=== PATIENT | male | born 1950 | race Caucasian/White ===

== ENCOUNTER 2017-10-23 23:07 | Inpatient (IN) | payer MEDICARE, OTHER ==
[~2017-10-23] VITALS: Ht 172.7 cm; Wt 66.9 kg
[2017-10-23 23:12] VITALS: BP 150/83; PULSE 102; RESP 15; TEMP 98.1; O2SAT 97
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
[2017-10-24 00:44] LABS: AST (GOT) 15 U/L (15-37); AUTOMATED NEUTROPHIL # 8.6 TH/MM3 (1.8-7.7); BASOPHIL # 0.1 TH/MM3 (0-0.2); BASOPHIL % 0.6 % (0.0-2.0); BLOOD UREA NITROGEN 20 MG/DL (7-18); CALCIUM 9.9 MG/DL (8.5-10.1); CHLORIDE 101 MEQ/L (98-107); CREATININE 0.82 MG/DL (0.60-1.30); EOSINOPHIL % 0.1 % (0.0-4.0); GLOMERULAR FILTRATION RATE 94 ML/MIN (>89); GLUCOSE,RANDOM 120 MG/DL (74-106); HEMATOCRIT 40.1 % (39.0-51.0); LYMPH % 11.9 % (9.0-44.0); LYMPHOCYTE # 1.3 TH/MM3 (1.0-4.8); MEAN CELL VOLUME 77.5 FL (80.0-100.0); MEAN CORPUSCULAR HEMOGLOBIN 25.1 PG (27.0-34.0); MEAN CORPUSCULAR HGB CONC 32.4 % (32.0-36.0); MEAN PLATELET VOLUME 7.4 FL (7.0-11.0); MONO % 7.1 % (0.0-8.0); MONOCYTE # 0.8 TH/MM3 (0-0.9); NEUT % 80.3 % (16.0-70.0); PLATELET COUNT 494 TH/MM3 (150-450); RED BLOOD COUNT 5.17 MIL/MM3 (4.50-5.90); RED CELL DISTRIBUTION WIDTH 22.4 % (11.6-17.2); SODIUM (NA) 137 MEQ/L (136-145); WHITE BLOOD COUNT 10.7 TH/MM3 (4.0-11.0)
[2017-10-24 00:45] LABS: ALT (GPT) 18 U/L (12-78)
[2017-10-24 00:55] LABS: ALKALINE PHOSPHATASE 103 U/L (45-117); TOTAL BILIRUBIN ADULT 0.4 MG/DL (0.2-1.0); TOTAL PROTEIN 8.8 GM/DL (6.4-8.2)
--- NOTE | 2017-10-24 08:27 | RADRPT ---
EXAM DATE/TIME: 10/24/2017 07:53 [facility] COMPARISON: No previous studies available for comparison. INDICATIONS : Altered mental status RADIATION DOSE: 30.67 CTDIvol (mGy) ; Patient motion MEDICAL HISTORY : masterson act SURGICAL HISTORY : Non-responsive. ENCOUNTER: Initial ACUITY: 1 day PAIN SCALE: Non-responsive LOCATION: cranial TECHNIQUE: Multiple contiguous axial images were obtained of the head. Using automated exposure control and adj ustment of the mA and/or kV according to patient size, radiation dose was kept as low as reasonably a chievable to obtain optimal diagnostic quality images. DICOM format image data is available electro nically for review and comparison. FINDINGS: CEREBRUM: Anatomic detail is quite limited due to motion artifact, even on the repeat images. The ventricles ar e normal for age. No evidence of midline shift, mass lesion, hemorrhage or acute infarction. Questi onable area of diminished attenuation in the posterior limb of the left internal capsule/basal gangli a. No extra-axial fluid collections are seen. POSTERIOR FOSSA: The cerebellum and brainstem are intact. The 4th ventricle is midline. The cerebellopontine angle i s unremarkable. EXTRACRANIAL: The visualized portion of the orbits is intact. SKULL: The calvaria is intact. No evidence of skull fracture. CONCLUSION: 1. Examination is significantly limited due to motion artifact 2. Questionable area of diminished attenuation in the posterior limb of left internal capsule/basal g anglia could represent an area of subacute/chronic infarction. José Castaneda MD on October 24, 2017 at 8:22 Board Certified Radiologist. This report was verified electronically.
[2017-10-24 09:58] LABS: BILIRUBIN, URINE NEG (NEG); BLOOD, URINE TRACE (NEG); GLUCOSE,URINE NEG (NEG); KETONE, URINE 40 mg/dL (NEG); MUCUS URINE FEW /lpf (OCC); NITRITE,URINE NEG (NEG); SQUAMOUS EPITHELIAL CELL URINE 1 /hpf (0-5); URINE COLOR YELLOW (YELLW/STRAW); URINE LEUKOCYTE ESTERASE NEG (NEG)
[2017-10-24] MEDS ORDERED: ACETAMINOPHEN 325 MG TAB PO PRN (10:30)
[2017-10-24] MEDS ORDERED: MELATONIN 5 MG TAB PO PRN (10:30)
[2017-10-24] MEDS ORDERED: ALUMINUM/MAGNESIUM/SIMETH 30 ML CUP PO PRN (10:30)
[2017-10-24] MEDS ORDERED: NICOTINE 21 MG/24 HR PATCH T-DERMAL PRN (10:30)
[2017-10-24] MEDS ORDERED: BENZTROPINE MESYLATE 2 MG/2 ML VIAL IM PRN (10:30)
[2017-10-24] MEDS ORDERED: MAGNESIUM HYDROXIDE SUSP 30 ML CUP PO PRN (10:30)
[2017-10-24] MEDS ORDERED: BENZTROPINE MESYLATE 1 MG TAB PO PRN (10:30)
[2017-10-24] MEDS ORDERED: PILL SPLITTER OTHER PRN (10:45)
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
[2017-10-24 15:57] VITALS: BP 128/82; PULSE 122; RESP 18; TEMP 97.7; O2SAT 97
--- NOTE | 2017-10-24 17:28 | PD.CONS ---
HPI Service [facility] Consult Requested By Dr. Negrete Reason for Consult Medical management Primary Care Physician Unknown Diagnoses: History of Present Illness The patient is a 67-year-old male with a past medical history of CAD status post CABG who is presenting to the hospital with altered mental status. The patient says that she started to get confused around 7 PM last night. He is unsure of what happened. The patient was Scott acted and brought into the hospital for further evaluation. The patient says that his on the of last month. He says recently he has been feeling sick. Over the past few days he has been throwing up. He has not been throwing up today. He says that he has a history of right rotator cuff tear, however, he has not pursued surgical repair as he is not considered a surgical candidate at this time. The patient says that he is shaky because he has not had his pain medication a long time. He denies alcohol or illicit drug use. The patient does not believe he could go for MRI of the brain without pain medication. Discussed with nursing. Review of Systems Except as stated in HPI: all other systems reviewed are Neg Past Family Social History Allergies: Coded Allergies: Unable to Assess (Verified Allergy, Unknown, 10/24/17) Past Medical History CAD s/p CABG Rotator cuff tear Past Surgical History CABG Active Ordered Medications Current Medications Medications (Trade) Dose Ordered Sig/Uziel Route Start Time Stop Time Status Last Admin (Tylenol) 650 mg Q4H PRN PO 10/24/17 10:30 (Milk Of Magnesia Liq) 30 ml DAILY PRN PO 10/24/17 10:30 (Mag-Al Plus Susp Liq) 30 ml Q6H PRN PO 10/24/17 10:30 (Habitrol 21 Mg Patch.24 Hr) 1 patch DAILY PRN T-DERMAL 10/24/17 10:30 (Cogentin) 0.5 mg Q12H PRN PO 10/24/17 10:30 (Cogentin Inj) 0.5 mg Q12H PRN IM 10/24/17 10:30 (Melatonin) 5 mg HS PRN PO 10/24/17 10:30 (Pill Splitter) 1 ea UNSCH PRN OTHER 10/24/17 10:45 Miscellaneous Information 1 DAILY T-DERMAL 10/25/17 09:00 Family History Daughter has psychiatric issues Social History He smokes 1 pack per day. He denies alcohol or illicit substances. Physical Exam Vital Signs Vital Signs Date Time Temp Pulse Resp B/P (MAP) Pulse Ox O2 Delivery O2 Flow Rate FiO2 10/24/17 15:57 97.7 122 18 128/82 (97) 97 10/23/17 23:12 98.1 102 15 150/83 (105) 97 Physical Exam GENERAL: This is a well-nourished, well-developed patient, in no apparent distress. SKIN: No rashes, ecchymoses or lesions. Cool and dry. HEAD: Atraumatic. Normocephalic. No temporal or scalp tenderness. EYES: Pupils equal round and reactive. Extraocular motions intact. No scleral icterus. No injection or drainage. ENT: Nose without bleeding, purulent drainage or septal hematoma. Throat without erythema, tonsillar hypertrophy or exudate. Uvula midline. Airway patent. NECK: Trachea midline. No JVD or lymphadenopathy. Supple, nontender, no meningeal signs. CARDIOVASCULAR: Tachycardic without murmurs, gallops, or rubs. RESPIRATORY: Clear to auscultation. Breath sounds equal bilaterally. No wheezes , rales, or rhonchi. GASTROINTESTINAL: Abdomen soft, non-tender, nondistended. No hepato-splenomegaly , or palpable masses. No guarding. MUSCULOSKELETAL: RUE too painful to move s/t rotator cuff tear. No LE edema. NEUROLOGICAL: Awake and alert. Cranial nerves II through XII intact. Motor and sensory grossly within normal limits. Five out of 5 muscle strength in all muscle groups except RUE. Normal speech. PSYCH: Mood and affect appropriate. Laboratory Laboratory Tests Test 10/24/17 00:26 10/24/17 09:20 10/24/17 12:45 10/24/17 12:50 White Blood Count 10.7 Red Blood Count 5.17 Hemoglobin 13.0 Hematocrit 40.1 Mean Corpuscular Volume 77.5 Mean Corpuscular Hemoglobin 25.1 Mean Corpuscular Hemoglobin Concent 32.4 Red Cell Distribution Width 22.4 Platelet Count 494 Mean Platelet Volume 7.4 Neutrophils (%) (Auto) 80.3 Lymphocytes (%) (Auto) 11.9 Monocytes (%) (Auto) 7.1 Eosinophils (%) (Auto) 0.1 Basophils (%) (Auto) 0.6 Neutrophils # (Auto) 8.6 Lymphocytes # (Auto) 1.3 Monocytes # (Auto) 0.8 Eosinophils # (Auto) 0.0 Basophils # (Auto) 0.1 CBC Comment DIFF FINAL Differential Comment Blood Urea Nitrogen 20 Creatinine 0.82 Random Glucose 120 Total Protein 8.8 Albumin 4.0 Calcium Level 9.9 Alkaline Phosphatase 103 Aspartate Amino Transf (AST/SGOT) 15 Alanine Aminotransferase (ALT/SGPT) 18 Total Bilirubin 0.4 Sodium Level 137 Potassium Level 3.7 Chloride Level 101 Carbon Dioxide Level 24.0 Anion Gap 12 Estimat Glomerular Filtration Rate 94 Thyroid Stimulating Hormone 3rd Gen 2.670 Urine Color YELLOW Urine Turbidity CLEAR Urine pH 6.0 Urine Specific [place] 1.018 Urine Protein 30 Urine Glucose (UA) NEG Urine Ketones 40 Urine Occult Blood TRACE Urine Nitrite NEG Urine Bilirubin NEG Urine Urobilinogen LESS THAN 2.0 Urine Leukocyte Esterase NEG Urine RBC 4 Urine WBC 1 Urine Squamous Epithelial Cells 1 Urine Mucus FEW Microscopic Urinalysis Comment CULT NOT INDICATED Urine Opiates Screen NEG Urine Barbiturates Screen NEG Urine Amphetamines Screen NEG Urine Benzodiazepines Screen NEG Urine Cocaine Screen NEG Urine Cannabinoids Screen NEG Ammonia 22 Vitamin B12 Level 807 25-Hydroxy Vitamin D Total 13.3 Ethyl Alcohol Level LESS THAN 3 Erythrocyte Sedimentation Rate 42 Test 10/24/17 12:58 Blood Gas Puncture Site LT RADIAL Blood Gas Patient Temperature 98.6 Blood Gas HCO3 23 Blood Gas Base Excess -0.2 Blood Gas Oxygen Saturation 94 Arterial Blood pH 7.47 Arterial Blood Partial Pressure CO2 32 Arterial Blood Partial Pressure O2 76 Arterial Blood Oxygen Content 16.0 Arterial Blood Carboxyhemoglobin 1.6 Arterial Blood Methemoglobin 0.5 Blood Gas Hemoglobin 12.1 Oxygen Delivery Device ROOM AIR Blood Gas Liter Flow 21 Result Diagram: 10/24/17 0026 10/24/17 0026 Imaging Last Impressions Head CT 10/24/17 0732 Signed Impressions: Service Date/Time: Tuesday, October 24, 2017 07:53 - CONCLUSION: 1. Examination is significantly limited due to motion artifact 2. Questionable area of diminished attenuation in the posterior limb of left internal capsule/basal ganglia could represent an area of subacute/chronic infarction. José Castaneda MD Assessment and Plan Assessment and Plan Metabolic encephalopathy The patient presents under Scott act for altered mental status. He is currently under the care of psychiatry. CT of the brain with motion artifact, however, subacute infarction cannot be ruled out. Mental status is improving. - Management per psychiatry. - Neurology has been consulted. - MRI of the brain ordered. - Vitamin D 50,000 units weekly initiated. - PT/ OT. CAD Status post CABG. - Would resume home medication regimen once clarified. - A1c and lipid profile pending. - Check an EKG as the patient is tachycardic. - will add Lopressor and ASA for now. Right rotator cuff tear The patient has chronic pain because of it. - Lortab and ibuprofen as needed. - Physical therapy. PPx: Ambulation Discussed Condition With Pt, nurses Layton Garza DO Oct 24, 2017 17:28
[2017-10-24] MEDS ORDERED: IBUPROFEN 600 MG TAB PO PRN (17:30)
[2017-10-24] MEDS ORDERED: ACETAMINOPHEN/HYDROcodone 325 MG/5 MG TAB PO ONE (17:30)
[2017-10-24] MEDS ORDERED: cloNIDine HCL 0.1 MG TAB PO PRN (17:30)
[2017-10-24] MEDS ORDERED: METOPROLOL TARTRATE 25 MG TAB PO ONE (17:45)
[2017-10-24] MEDS: ERGOCALCIFEROL (VIT D2) 50,000 UNIT CAP PO SCH (18:00)
[2017-10-24 18:06] VITALS: BP 111/82; PULSE 123; RESP 18; TEMP 98.2; O2SAT 97
--- NOTE | 2017-10-24 18:24 | RADRPT ---
EXAM DATE/TIME: 10/24/2017 17:33 [facility] COMPARISON: CT BRAIN W/O CONTRAST, October 24, 2017, 7:53. INDICATIONS : CVA. MEDICAL HISTORY : Cardiovascular disease SURGICAL HISTORY : CABG ENCOUNTER: Initial ACUITY: 1 day PAIN SCORE: 6/10 LOCATION: Bilateral cranial TECHNIQUE: Multiplanar, multisequence MRI of the brain was performed without contrast. FINDINGS: CEREBRUM: The ventricles are normal for age. No evidence of midline shift, mass lesion, hemorrhage or acute in farction. No extraaxial fluid collections are seen. The pituitary gland and suprasellar cistern are normal in configuration. WHITE MATTER: A few small scattered nonspecific areas of T2 prolongation are seen in the supratentorial white matte r. POSTERIOR FOSSA: The cerebellum and brainstem are intact. The 4th ventricle is midline. The cerebellopontine angle is unremarkable. The cerebellar tonsils are normal in position. DIFFUSION IMAGING: No focal areas of restricted diffusion are seen. No evidence of acute infarction. EXTRACRANIAL: The visualized portions of the orbits and paranasal sinuses are unremarkable. CONCLUSION: Negative noncontrast MRI of the brain. No evidence of acute stroke. Ming Varma MD on October 24, 2017 at 18:16 Board Certified Radiologist. This report was verified electronically.
[2017-10-24] MEDS: ASPIRIN EC 81 MG TABEC PO SCH (18:30)
[2017-10-24] MEDS: METOPROLOL TARTRATE 25 MG TAB PO SCH (21:00)
[2017-10-24] MEDS ORDERED: ACETAMINOPHEN/HYDROcodone 325 MG/5 MG TAB PO PRN (21:30)
[2017-10-24] MEDS ORDERED: ACETAMINOPHEN/HYDROcodone 325 MG/10 MG TAB PO ONE (22:00)
--- NOTE | 2017-10-24 23:31 | RADRPT ---
EXAM DATE/TIME: 10/24/2017 22:40 [facility] COMPARISON: No previous studies available for comparison. INDICATIONS : Transient ischemic attack. MEDICAL HISTORY : Cardiovascular disease SURGICAL HISTORY : CABG. ENCOUNTER: Initial ACUITY: 1 day PAIN SCORE: 0/10 LOCATION: Bilateral neck PEAK SYSTOLIC VELOCITIES (cm/sec): ICA/CCA RATIO: Right: 1.0 Left: 0.8 ICA: Right: 71.3 Left: 58.1 CCA: Right: 69.8 Left: 72.5 ECA: Right: 57.0 Left: 54.8 VERTEBRAL: Right: 34.8 antegrade Left: 44.9 antegrade Elevated flow velocities and ICA/CCA ratios have been found to correlate with increased degrees of vessel stenosis, calculated as percentage of diameter relative to a normal segment of distal ICA/CCA FINDINGS: RIGHT CAROTID: There is mild calcified and noncalcified plaque in the carotid bulb and proximal internal carotid art santos. LEFT CAROTID: There is mild calcified and noncalcified plaque in the carotid bulb and proximal internal carotid art santos. VERTEBRAL ARTERIES: Antegrade flow is seen in both vertebral arteries. MISCELLANEOUS: None. CONCLUSION: 1. Mild atherosclerotic disease within the carotid bulbs and proximal internal carotid arteries bilat erally. However, no significant stenosis is identified (less than 50% stenosis). 2. There is antegrade flow within both vertebral arteries. Kaden Bhatia MD on October 24, 2017 at 23:28 Board Certified Radiologist. This report was verified electronically.
[2017-10-25 06:00] VITALS: BP 116/65; PULSE 102; RESP 16; TEMP 97.3; O2SAT 95
--- NOTE | 2017-10-25 07:15 | HHI.PYPN ---
Subjective Remarks Patient seen and examined. Chart reviewed. Case discussed with nursing staff. Patient complained of chest pain overnight. Hospitalist was called and ordered EKG and cardiac enzymes, which I have reviewed. Case discussed in treatment team. On my examination today, the patient is alert and oriented to person, place and date. He does complain of some ongoing chest and chronic shoulder pain. He denies any psychiatric history. Denies any chemical dependency issues. Denies any SI, HI or AVH. He still does not have any recollection of the circumstances of his presentation here. No other physical complaints. Review of Systems ROS Limitations: Poor Historian Except as stated in HPI: all other systems reviewed are Neg Mental Status Examination Appearance: Appropriate Consciousness: Alert Orientation: Person, Place, Date/Time Motor Activity: Other (no motor abnormalities noted) Speech: Unremarkable Language: Adequate Fund of Knowledge: Adequate Attention and Concentration: Adequate Memory: Impaired (seems improved today on clinical exam) Mood: Appropriate Affect: Appropriate Thought Process & Associations: Intact Thought Content: Appropriate Hallucination Type: None Delusion Type: None Suicidal Ideation: No Suicidal Plan: No Suicidal Intention: No Homicidal Ideation: No Homicidal Plan: No Homicidal Intention: No Mental Status Exam Remarks Insight and judgment are unclear Results Labs Item Value Date Time Erythrocyte Sedimentation Rate 42 mm/hr H 10/24/17 1250 Ammonia 22 MCMOL/L 10/24/17 1245 Vitamin B12 Level 807 PG/ML 10/24/17 1245 25-Hydroxy Vitamin D Total 13.3 ng/ML L 10/24/17 1245 Thyroid Stimulating Hormone 3rd Gen 2.670 uIU/ML 10/24/17 0026 Item Value Date Time Total Creatine Kinase 116 U/L 10/25/17 0645 Creatine Kinase MB 1.9 NG/ML 10/25/17 0645 Troponin I 0.19 NG/ML H 10/25/17 0645 C-Reactive Protein 0.80 MG/DL H 10/24/[address] 10/24/17 0732 Signed Impressions: Service Date/Time: Tuesday, October 24, 2017 07:53 - CONCLUSION: 1. Examination is significantly limited due to motion artifact 2. Questionable area of diminished attenuation in the posterior limb of left internal capsule/basal ganglia could represent an area of subacute/chronic infarction. José Castaneda MD Carotid Artery Ultrasound 10/24/17 0000 Signed Impressions: Service Date/Time: Tuesday, October 24, 2017 22:40 - CONCLUSION: 1. Mild atherosclerotic disease within the carotid bulbs and proximal internal carotid arteries bilaterally. However, no significant stenosis is identified (less than 50%% stenosis). 2. There is antegrade flow within both vertebral arteries. Kaden Bhatia MD Brain MRI 10/24/17 0000 Signed Impressions: Service Date/Time: Tuesday, October 24, 2017 17:33 - CONCLUSION: Negative noncontrast MRI of the brain. No evidence of acute stroke. Ming Varma MD EKG obtained this morning reviewed. Vitals/IOs Vital Signs Date Time Temp Pulse Resp B/P (MAP) Pulse Ox O2 Delivery O2 Flow Rate FiO2 10/25/17 06:00 97.3 102 16 116/65 (82) 95 Assessment & Plan Problem List: (1) Adjustment disorder, unspecified ICD Codes: F43.20 - Adjustment disorder, unspecified Assessment & Plan Mental status seems to be improved this morning. Follow up outstanding AMS labs. Hospitalist notified re: CE and EKG findings; defer to hospitalist regarding further management of chest pain. Neuro input noted and appreciated. Continue to monitor on the medical psychiatric unit. Continue other medications and care as ordered. Justification for Cont. Inpt. Complicating condition. Risk for decompensation in less restrictive environment. Discharge Planning Pending outcome of observation. Request HC Surrog/Guard Advoc?: Yes Problem Qualifiers (1) Adjustment disorder, unspecified: Qualified Codes: F43.20 - Adjustment disorder, unspecified Anjel Negrete MD Oct 25, 2017 07:15
[2017-10-25 07:27] LABS: TROPONIN I 0.19 NG/ML (0.02-0.05)
[2017-10-25 07:34] LABS: CHOLESTEROL 171 MG/DL (120-200); TRIGLYCERIDES 131 MG/DL (42-150)
[2017-10-25 07:36] LABS: CHOLESTEROL/ HDL RATIO 2.89 RATIO; LDL CHOLESTEROL 86 MG/DL (0-99)
--- NOTE | 2017-10-25 07:50 | HHI.PR ---
Subjective Remarks mri nl labs pend ekg sr ? some ischemic changes i defer to med team on ekg results consider cards consult if thought important Objective Vital Signs Date Time Temp Pulse Resp B/P (MAP) Pulse Ox O2 Delivery O2 Flow Rate FiO2 10/25/17 06:00 97.3 102 16 116/65 (82) 95 10/24/17 18:06 98.2 123 18 111/82 (92) 97 10/24/17 18:06 98.2 123 18 111/82 (92) 97 10/24/17 15:57 97.7 122 18 128/82 (97) 97 I/O 10/24/17 10/24/17 10/24/17 10/25/17 10/25/17 10/25/17 07:00 15:00 23:00 07:00 15:00 23:00 Intake Total 720 ml Balance 720 ml Intake Oral 720 ml # Voids 2 Result Diagram: 10/24/17 0026 10/24/17 0026 Anjel Lau MD Oct 25, 2017 07:50
[2017-10-25] MEDS: REMOVE OLD NICOTINE PATCH T-DERMAL SCH (09:00)
[2017-10-25] MEDS ORDERED: NITROGLYCERIN 0.4 MG SL 25 TABS/BTL SL PRN (09:15)
[2017-10-25] MEDS: ASPIRIN EC 81 MG TABEC PO SCH (10:10)
[2017-10-25] MEDS: METOPROLOL TARTRATE 25 MG TAB PO SCH ×2 (10:10→22:10)
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
[2017-10-25 12:22] LABS: TROPONIN I 0.14 NG/ML (0.02-0.05)
[2017-10-25] MEDS: ACETAMINOPHEN/HYDROcodone 325 MG/5 MG TAB PO PRN ×3 (13:23→22:12)
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
[2017-10-25 16:09] LABS: HEMOGLOBIN A1C 5.8 % (4.3-6.0)
--- NOTE | 2017-10-25 17:13 | MG ---
cc: Anjel Lau MD EEG #: [id number] [place], no hyperventilation, , hitting mailboxes, confusion, lost period of time. Recording shows a symmetric 7-8 Hz 60 mV posterior rhythm. Most of it is more of a 7 Hz rhythm, however, including overall synchronous and symmetric. A fair amount of bifrontal muscle artifact is seen. I do not see any epileptiform or seizure activity. Photic stimulation is performed without significant posterior driving. IMPRESSION: Some mild diffuse beta slowing, otherwise an unremarkable electroencephalogram. No hemisphere asymmetry is noted. No epileptiform or seizure activity is seen. MD JESSICA Eldridge/GIOVANNY/hortencia , 04:29 PM , 05:01 PM
--- NOTE | 2017-10-25 18:54 | EKG ---
Date Performed: 10/25/2017 Time Performed: 12:19:13 PTAGE: 67 years EKG: Sinus rhythm WITH OCCASIONAL VENTRICULAR PREMATURE COMPLEXES POSSIBLE LEFT ATRIAL ENLARGEMENT PROBABLE INFERIOR M YOCARDIAL INFARCTION , PROBABLY OLD MODERATE T-WAVE ABNORMALITY, CONSIDER LATERAL ISCHEMIA ABNORMAL E CG Since the prior tracing, there has been no significant change PREVIOUS TRACING : 10/25/2017 07.17 DOCTOR: Pedro Delaney Interpretating Date/Time 10/25/2017 18:51:05
[2017-10-25 19:07] VITALS: BP 105/57; PULSE 110; RESP 18; TEMP 98.6; O2SAT 95
[2017-10-25 19:18] LABS: TROPONIN I 0.17 NG/ML (0.02-0.05)
[2017-10-26] MEDS: ACETAMINOPHEN/HYDROcodone 325 MG/5 MG TAB PO PRN ×5 (02:38→21:50)
[2017-10-26 05:24] VITALS: BP 132/77; PULSE 17; RESP 17; TEMP 97.8; O2SAT 95
--- NOTE | 2017-10-26 07:58 | HHI.PR ---
Subjective Remarks mri nl labs neg x trop inc ekg sr ? some ischemic changes Objective Vital Signs Date Time Temp Pulse Resp B/P (MAP) Pulse Ox O2 Delivery O2 Flow Rate FiO2 10/26/17 05:24 97.8 17 17 132/77 (95) 95 10/25/17 19:07 98.6 110 18 105/57 (73) 95 I/O 10/25/17 10/25/17 10/25/17 10/26/17 10/26/17 10/26/17 06:59 14:59 22:59 06:59 14:59 22:59 Intake Total 240 ml 720 ml 240 ml Balance 240 ml 720 ml 240 ml Intake Oral 240 ml 720 ml 240 ml # Voids 2 1 1 Result Diagram: 10/24/17 0026 10/24/17 0026 Objective Remarks vff 5/5 nl speech ox3 stm 0/3 twice at 2 min good recall o/w Assessment and Plan Assessment and Plan imp he tells me one yr of stm problems start namenda check labs mri and eeg nl and us neg has some cp and abn ekg and trop inc and hx cabg i will have cards see Anjel Lau MD Oct 26, 2017 07:58
--- NOTE | 2017-10-26 08:23 | EKG ---
Date Performed: 10/24/2017 Time Performed: 18:28:18 PTAGE: 67 years EKG: SINUS TACHYCARDIA LEFT ATRIAL ENLARGEMENT NONSPECIFIC T-WAVE ABNORMALITY POSSIBLE OLD INFER IOR INFARCT ABNORMAL ECG NO PREVIOUS TRACING DOCTOR: Pedro Delaney Interpretating Date/Time 10/26/2017 08:22:34
--- NOTE | 2017-10-26 08:25 | EKG ---
Date Performed: 10/25/2017 Time Performed: 07:17:39 PTAGE: 67 years EKG: NORMAL Sinus rhythm POSSIBLE OLD INFERIOR INFARCT VENTRICULAR PREMATURE COMPLEX NONSPECIFIC ST-T WAVE CHANGES WITH SOME MILD VARIATION COMPARED TO THE PRIOR TRACING CLINICAL CORRELATION IS NEEDED ABNORMAL ECG PREVIOUS TRACING : 10/24/2017 18.28 DOCTOR: Pedro Delaney Interpretating Date/Time 10/26/2017 08:23:54
--- NOTE | 2017-10-26 08:39 | HHI.PYPN ---
Subjective Remarks Patient seen and examined with nurse. Chart reviewed. Case discussed with nursing staff. No behavioral problems noted. Case discussed with OT. On my exam, patient denies SI/HI/AVH. He seems fairly lucid in our interaction, but MOCA is 14/30. Patient expresses preference to live independently. He does not want to stay with his children or in an [facility]. He would be agreeable to home health. Review of Systems Except as stated in HPI: all other systems reviewed are Neg Mental Status Examination Appearance: Appropriate Consciousness: Alert Orientation: Person, Place (city), Date/Time Motor Activity: Other (no abnormal motor movements noted) Speech: Unremarkable Language: Adequate Fund of Knowledge: Adequate Attention and Concentration: Adequate Memory: Impaired (MOCA 14/30) Mood: Appropriate Affect: Appropriate Thought Process & Associations: Intact Thought Content: Appropriate Hallucination Type: None Delusion Type: None Suicidal Ideation: No Suicidal Plan: No Suicidal Intention: No Homicidal Ideation: No Homicidal Plan: No Homicidal Intention: No Mental Status Exam Remarks Insight and judgment are fair. Results Labs Test 10/25/17 11:47 10/25/17 17:56 Total Creatine Kinase 114 U/L 152 U/L Troponin I 0.14 NG/ML 0.17 NG/ML Labs reviewed. Vitals/IOs Vital Signs Date Time Temp Pulse Resp B/P (MAP) Pulse Ox O2 Delivery O2 Flow Rate FiO2 10/26/17 05:24 97.8 17 17 132/77 (95) 95 Intake and Output 10/26/17 10/26/17 10/27/17 08:00 16:00 00:00 Intake Total 480 ml Balance 480 ml Assessment & Plan Problem List: (1) Neurocognitive disorder ICD Codes: R41.9 - Unspecified symptoms and signs involving cognitive functions and awareness Assessment & Plan Findings on bedside cognitive screening concerning for some degree of neurocognitive disorder. Neuro has started Namenda, and I will continue this for now. I will request neuropsych eval to further elucidate patient's cognitive issues. OT to evaluate patient for ADLs today. Patient wants to return to independent living but is receptive to home health; to be determined whether this represents a safe discharge plan. Hospitalist input noted and appreciated. Neuro has ordered cards consultation. Continue to monitor on inpatient unit. Continue other care as ordered. Lengthy discussion with patient regarding voluntary status, and I feel that patient is presently capacitated to consent for voluntary admission, and he is agreeable to this. Justification for Cont. Inpt. Ongoing assessment and safe discharge planning. Discharge Planning Pending outcome of above. Request HC Surrog/Guard Advoc?: Yes Anjel Negrete MD Oct 26, 2017 08:39
[2017-10-26] MEDS: METOPROLOL TARTRATE 25 MG TAB PO SCH ×2 (09:00→20:26)
[2017-10-26] MEDS: REMOVE OLD NICOTINE PATCH T-DERMAL SCH (09:00)
[2017-10-26] MEDS: ASPIRIN EC 81 MG TABEC PO SCH (09:00)
[2017-10-26] MEDS: MEMANTINE HCL 5 MG TAB PO SCH (09:00)
--- NOTE | 2017-10-26 10:20 | HHI.PR ---
Subjective Remarks c/o pain in his right shoulder also with abdominal pain but association, no nausea / vomiting/ diarrhea last bm was this am asking for pain meds to be increased Objective Vital Signs Date Time Temp Pulse Resp B/P (MAP) Pulse Ox O2 Delivery O2 Flow Rate FiO2 10/26/17 05:24 97.8 17 17 132/77 (95) 95 10/25/17 19:07 98.6 110 18 105/57 (73) 95 I/O 10/25/17 10/25/17 10/25/17 10/26/17 10/26/17 10/26/17 07:00 15:00 23:00 07:00 15:00 23:00 Intake Total 240 ml 720 ml 240 ml 240 ml Balance 240 ml 720 ml 240 ml 240 ml Intake Oral 240 ml 720 ml 240 ml 240 ml # Voids 2 1 1 Result Diagram: 10/24/17 0026 10/24/17 0026 Objective Remarks awake, alert, reports of pain of right shoulder, but sleeping on right side, and states pain is better if he put pressure on it heart rate is regular, no murmur lungs clear abdomen is soft and non tender . When I examined the patient, I have distracted him by talking and asking questions and his exam is completely benign. no calf asymmetry chest pain is reproducible when i press at mid sternal area RUE- no pain on palpation at elbow, forearm- mild pain at right shoulder and right mid arm- worse pain on abduction of RUE A/P Assessment and Plan Impression/ Plan: right shoulder pain - possible adhesive capsulitis vs long standing rotator cuff tear d/c ibuprofen due to cad hx lortab 5mg q4hrs prn for pain pt confirms symptoms being long standing for years chest pain- likely musculoskeletal, however with risk factors elevated troponin- cardiac enzymes and EKGs. Personally reviewed. Enzymes are mild, history is not suggestive of cardiac etiology. Exam is reproducible. EKG personally reviewed. Occasional PVCs. No significant ST T changes. Cardiology has been consulted by neurologist. We'll follow recommendations. cad s/p cab 12/2016; a1c, lipide profile wnl; on asa, beta jack masterson act status- per psychiatry metabolic encephalopathy- pt is being followed by neurology- pt reports more of being depressed due to recent . dvt prophylaxis with ambulation will follow cardiology eval today requested by neuro- if no acute issues, will sign off will use pain meds sparingly, physical exam of abdomen and chest benign, hx more suggestive of subjective pains Patient is explained that his pains and physical exam are not suggestive of any significant acute pathology. He is quite pleasant and receptive to counseling regarding narcotic pain meds. I will just keep the current dosing and also advised nursing regarding his subjective nature of pains. Discharge Planning Per psychiatry. Toñito Manning MD Oct 26, 2017 10:20
[2017-10-26] MEDS ORDERED: ACETAMINOPHEN/HYDROcodone 325 MG/5 MG TAB PO ONE (13:30)
--- NOTE | 2017-10-26 14:07 | EKG ---
Date Performed: 10/25/2017 Time Performed: 17:58:41 PTAGE: 67 years EKG: SINUS TACHYCARDIA POSSIBLE RIGHT ATRIAL ENLARGEMENT INFERIOR MYOCARDIAL INFARCTION , PROBAB LY OLD ABNORMAL ECG PREVIOUS TRACING : 10/25/2017 12.19 DOCTOR: Moy Sims Interpretating Date/Time 10/26/2017 14:06:05
[2017-10-26 14:25] LABS: ANA SCREEN NEG (NEG)
--- NOTE | 2017-10-26 15:06 | PD.TTN ---
Patient Problems 1. Discharge planning 2. Medication compliance 3. Knowledge deficit 4. Lack of coping skills Progress Toward Goals Provider Present: Dr. Ladonna Negrete Provider Input: 10/25/2017 Patient is a new admission, and will be assess for service and appropriate dc needs Psychiatric Counselors Present: JASON Rodriguez Psych Therapist Input: 10/25/2017; counselor will make contact with patient and his family to ensure appropriate dc planning Group Spec/RT/OT/JAIMES Present: Brandon Moreland OT Group Spec/RT/OT/JAIMES Input: 10/25/2017 patient will be assess and given inpatient group/activity schedule Documentation Scribe: Leesa Rodriguez Oct 26, 2017 15:06
[2017-10-26 18:00] VITALS: BP 97/60; PULSE 96; RESP 15; TEMP 98.2; O2SAT 97
[2017-10-27] MEDS: ACETAMINOPHEN/HYDROcodone 325 MG/5 MG TAB PO PRN ×5 (01:50→20:37)
[2017-10-27 06:00] VITALS: BP 112/74; PULSE 90; RESP 20; TEMP 97.9; O2SAT 97
[2017-10-27] MEDS: MEMANTINE HCL 5 MG TAB PO SCH (08:34)
[2017-10-27] MEDS: METOPROLOL TARTRATE 25 MG TAB PO SCH ×2 (08:34→20:37)
[2017-10-27] MEDS: ASPIRIN EC 81 MG TABEC PO SCH (08:34)
[2017-10-27] MEDS: REMOVE OLD NICOTINE PATCH T-DERMAL SCH (08:34)
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
[2017-10-27 22:16] LABS: ALB/GLOB RATIO (SPE) 1.16 (1.39-2.23)
[2017-10-28] MEDS: ACETAMINOPHEN/HYDROcodone 325 MG/5 MG TAB PO PRN ×6 (00:34→21:25)
[2017-10-28 06:00] VITALS: BP 100/63; PULSE 85; RESP 17; TEMP 98.3; O2SAT 97
[2017-10-28] MEDS: MEMANTINE HCL 5 MG TAB PO SCH (08:57)
[2017-10-28] MEDS: ASPIRIN EC 81 MG TABEC PO SCH (08:57)
[2017-10-28] MEDS: METOPROLOL TARTRATE 25 MG TAB PO SCH ×2 (08:57→21:08)
[2017-10-28] MEDS: REMOVE OLD NICOTINE PATCH T-DERMAL SCH (09:00)
[2017-10-28 12:53] LABS: METHYLMALONIC ACID 0.23 nmol/mL (<=0.40)
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
--- NOTE | 2017-10-28 15:07 | PD.TTN ---
Patient Problems 1. Discharge planning 2. Medication compliance 3. Knowledge deficit 4. Lack of coping skills Progress Toward Goals Provider Present: Dr. Ladonna Negrete Provider Input: 10/28/17: Slightly demented Continue on Nemenda for memory is stable, waiting on Neuro and medical. 10/25/2017 Patient is a new admission, and will be assess for service and appropriate dc needs Nurse(s) Present: No Nurse Present Psychiatric Counselors Present: Tesha Ferreira LCSW, Leesa Smith, [facility] Psych Therapist Input: 10/25/2017; counselor will make contact with patient and his family to ensure appropriate dc planning Group Spec/RT/OT/JAIMES Present: YASH Emerson, Brandon Moreland, OT Group Spec/RT/OT/JAIMES Input: 10/28/17: Does not attend groups, isolates to room. 10/25/2017 patient will be assess and given inpatient group/activity schedule Documentation Scribe: Ginger Varela Oct 28, 2017 15:07
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
[2017-10-28 17:45] VITALS: BP 116/74; PULSE 101; RESP 16; TEMP 98.3; O2SAT 97
[2017-10-28] MEDS: MIRTAZAPINE 15 MG TAB PO SCH (21:08)
[2017-10-29] MEDS: ACETAMINOPHEN/HYDROcodone 325 MG/5 MG TAB PO PRN ×6 (02:20→22:38)
[2017-10-29 05:34] VITALS: BP 125/75; PULSE 88; RESP 16; TEMP 97.9; O2SAT 97
--- NOTE | 2017-10-29 08:29 | HHI.PYPN ---
Subjective Remarks Patient seen in his room with nurse Riri, patient calm cooperative pleasant with me. He does denies suicidality voices or visions at the present time. She is having no problems with his medication though he does state that his pain medications are somewhat "light". He is accepting of that. He states appetite is still poor. For now continue treatment Review of Systems Except as stated in HPI: all other systems reviewed are Neg Mental Status Examination Appearance: Appropriate Consciousness: Alert Orientation: Person, Place, Date/Time Motor Activity: Other (No abnormal motor movements noted) Speech: Unremarkable Language: Adequate Fund of Knowledge: Adequate Attention and Concentration: Adequate Memory: Impaired (MOCA yesterday ) Mood: Other (mildly dysphoric) Affect: Other (tearful at times) Thought Process & Associations: Intact Thought Content: Appropriate Hallucination Type: None Delusion Type: None Suicidal Ideation: No Suicidal Plan: No Suicidal Intention: No Homicidal Ideation: No Homicidal Plan: No Homicidal Intention: No Results Vitals/IOs Vital Signs Date Time Temp Pulse Resp B/P (MAP) Pulse Ox O2 Delivery O2 Flow Rate FiO2 10/29/17 05:34 97.9 88 16 125/75 (92) 97 Intake and Output 10/29/17 10/29/17 10/30/17 08:00 16:00 00:00 Intake Total 240 ml Balance 240 ml Assessment & Plan Problem List: (1) Adjustment disorder, unspecified ICD Codes: F43.20 - Adjustment disorder, unspecified (2) Neurocognitive disorder ICD Codes: R41.9 - Unspecified symptoms and signs involving cognitive functions and awareness Assessment & Plan Estimated LOS: days patient continues depressed, compliant medications, and no behavioral problems. Justification for Cont. Inpt. At this time patient will decompensate if placed in a lower level of care Discharge Planning Problem return to the community perhaps sustain a motel until he can make arrangements to live near his daughter in [place] Request HC Surrog/Guard Advoc?: No Problem Qualifiers (1) Adjustment disorder, unspecified: Qualified Codes: F43.21 - Adjustment disorder with depressed mood Kaden Pierce MD Oct 29, 2017 08:29
[2017-10-29] MEDS: METOPROLOL TARTRATE 25 MG TAB PO SCH ×2 (08:47→20:13)
[2017-10-29] MEDS: REMOVE OLD NICOTINE PATCH T-DERMAL SCH (08:48)
[2017-10-29] MEDS: MEMANTINE HCL 5 MG TAB PO SCH (09:00)
[2017-10-29] MEDS: ASPIRIN EC 81 MG TABEC PO SCH (09:00)
--- NOTE | 2017-10-29 11:25 | MB ---
cc: Adryan Navarro DO DATE OF CONSULT: 10/28/2017 REASON FOR CONSULTATION: Chest pain, elevated troponin. HISTORY OF PRESENT ILLNESS: Moises Joel is a pleasant 67-year-old male who presented to the hospital on 10/24/2017 due to altered mental status. Apparently, the patient started getting confused the night before at around 7:00 p.m. He was unsure of what happened at the time. He was brought in as a [place] for further evaluation. Unfortunately, the patient states that his 2-3 weeks ago. He has overall just been under a lot of stress and feeling sick and nauseous. Apparently, while in medical psych, he had some chest pain. When asking him about it, he points to the lower part of his sternum and can show me a specific area where it is sharp and stabbing. It hurts more with pushing in. Troponins were checked and these were mildly elevated and so I was consulted to see the patient. In seeing the patient, he states that he had similar type chest pain after his bypass. PAST MEDICAL HISTORY: 1. Coronary artery disease. 2. Rotator cuff tear. PAST SURGICAL HISTORY: CABG. ALLERGIES: NO KNOWN DRUG ALLERGIES. MEDICATIONS: Denies. FAMILY HISTORY: Denies premature coronary artery disease or sudden cardiac within the family. SOCIAL HISTORY: The patient smokes 1 pack of cigarettes per day. Denies alcohol or drug abuse. REVIEW OF SYSTEMS: Fourteen systems were reviewed including osteopathic. Pertinent positives and negatives above, otherwise negative. PHYSICAL EXAMINATION: VITAL SIGNS: Temperature 98.3, heart rate 85, blood pressure 100/63, respirations 17, pulse ox 97% on room air. GENERAL: The patient appears well, no acute distress, alert, awake and oriented x 3. HEENT: Extraocular muscles intact. Mucous membranes moist. NECK: Supple, no JVD at 45 degrees, no carotid bruits heard bilaterally. Carotid upstroke is brisk in nature. HEART: Regular rate and rhythm. Positive first and second heart sounds with no noted murmurs, gallops or rubs. LUNGS: Clear to auscultation bilaterally with no wheezes, rales or rhonchi. ABDOMEN: Soft, nontender, nondistended. No organomegaly noted. EXTREMITIES: Show no clubbing, cyanosis or edema. Femoral and distal pulses intact bilaterally. NEUROLOGIC: No focal deficits. SKIN: Warm, dry and intact. OSTEOPATHICALLY: No kyphoscoliosis or lordosis. No paraspinal tender points. LABORATORY STUDIES: Hemoglobin 13.0, hematocrit 40.1, platelets 494. Potassium 3.7, BUN 20, creatinine 0.82. Troponin 0.19. Electrocardiogram (10/25/2017 at 1758) shows sinus tachycardia, right atrial enlargement, and inferior myocardial infarction, most likely old. IMPRESSIONS: 1. Atypical chest pain, possibly musculoskeletal. 2. Elevated troponin. 3. History of coronary artery disease with coronary artery bypass grafting. RECOMMENDATIONS: 1. Mr. Joel appears to have atypical chest pain, not particularly concerning for coronary insufficiency, but he did have an elevated troponin. 2. Because of this, I will recommend ladies locker room attendant nuclear stress testing in the morning. 3. If this is negative, then no further cardiovascular workup is needed. 4. If this is positive, then I will discuss with him undergoing cardiac catheterization with possible intervention. 5. He will continue on aspirin for his coronary artery disease. 6. I spoke to him for greater than 3 minutes about tobacco cessation. 7. Further recommendations will be made based on the hospital course. Thank you for allowing me to see Moises Joel. If there are any questions, please do not hesitate to call. Adryan Navarro, DO VGP/KD , 09:38 AM , 11:24 AM
--- NOTE | 2017-10-29 14:24 | PD.CARD.PN ---
Subjective Subjective Remarks No events overnight Still has pain in multiple areas, asking for pain pill as that helps Objective Medications Current Medications Medications (Trade) Dose Ordered Sig/Uziel Route Start Time Stop Time Status Last Admin (Tylenol) 650 mg Q4H PRN PO 10/24/17 10:30 (Milk Of Magnesia Liq) 30 ml DAILY PRN PO 10/24/17 10:30 (Mag-Al Plus Susp Liq) 30 ml Q6H PRN PO 10/24/17 10:30 10/26/17 04:59 (Habitrol 21 Mg Patch.24 Hr) 1 patch DAILY PRN T-DERMAL 10/24/17 10:30 (Cogentin) 0.5 mg Q12H PRN PO 10/24/17 10:30 (Cogentin Inj) 0.5 mg Q12H PRN IM 10/24/17 10:30 (Melatonin) 5 mg HS PRN PO 10/24/17 10:30 10/26/17 21:50 (Pill Splitter) 1 ea UNSCH PRN OTHER 10/24/17 10:45 Miscellaneous Information 1 DAILY T-DERMAL 10/25/17 09:00 10/26/17 09:00 (Drisdol) 50,000 units Q7D PO 10/24/17 18:00 (Lopressor) 25 mg Q12HR PO 10/24/17 21:00 10/28/17 21:08 (Ecotrin Ec) 81 mg DAILY PO 10/24/17 18:30 10/29/17 09:00 (Nitrostat Sl) 0.4 mg Q5M PRN SL 10/25/17 09:15 ([place] 5-325 Mg) 1 tab Q4H PRN PO 10/25/17 13:00 10/29/17 10:41 (Namenda) 5 mg DAILY PO 10/26/17 09:00 11/01/17 09:01 10/29/17 09:00 (Namenda) 5 mg BID PO 11/02/17 09:00 11/08/17 21:01 (Namenda) 10 mg BID PO 11/09/17 09:00 (Remeron) 15 mg HS PO 10/28/17 21:00 10/28/17 21:08 Vital Signs / I&O Vital Signs Date Time Temp Pulse Resp B/P (MAP) Pulse Ox O2 Delivery O2 Flow Rate FiO2 10/29/17 05:34 97.9 88 16 125/75 (92) 97 10/28/17 17:45 98.3 101 16 116/74 (88) 97 I/O 10/28/17 10/28/17 10/28/17 10/29/17 10/29/17 10/29/17 07:00 15:00 23:00 07:00 15:00 23:00 Intake Total 240 ml 600 ml 2640 ml 240 ml Balance 240 ml 600 ml 2640 ml 240 ml Intake Oral 240 ml 600 ml 2640 ml 240 ml # Voids 2 2 2 Physical Exam GENERAL: NAD SKIN: Warm and dry. HEAD: Atraumatic. Normocephalic. EYES: Pupils equal and round. No scleral icterus. No injection or drainage. ENT: No nasal bleeding or discharge. Mucous membranes pink and moist. NECK: Trachea midline. No JVD. CARDIOVASCULAR: Regular rate and rhythm. RESPIRATORY: No accessory muscle use. Clear to auscultation. Breath sounds equal bilaterally. GASTROINTESTINAL: Abdomen soft, non-tender, nondistended. Hepatic and splenic margins not palpable. MUSCULOSKELETAL: Extremities without clubbing, cyanosis, or edema. No obvious deformities. NEUROLOGICAL: Awake and alert. No obvious cranial nerve deficits. Motor grossly within normal limits. Five out of 5 muscle strength in the arms and legs. Normal speech. PSYCHIATRIC: Appropriate mood and affect; insight and judgment normal. Assessment and Plan Problem List: (1) Elevated troponin ICD Codes: R74.8 - Abnormal levels of other serum enzymes (2) Chest pain, atypical ICD Codes: R07.89 - Other chest pain (3) CAD (coronary artery disease) ICD Codes: I25.10 - Atherosclerotic heart disease of [place] coronary artery without angina pectoris (4) Hx of CABG ICD Codes: Z95.1 - Presence of aortocoronary bypass graft Assessment and Plan 1) Atypical chest pain Minimal troponin elevation Plan for Lexiscan stress test today 2) If negative, no further work up necessary 3) If positive, will plan for cardiac catheterization on Tuesday 4) Tobacco abuse Cessation 5) Con't Adryan Dugan DO Oct 29, 2017 14:24
[2017-10-29] MEDS ORDERED: REGADENOSON INJ 0.4 MG/5 ML SYR ONE (15:26)
--- NOTE | 2017-10-29 17:02 | RADRPT ---
EXAM DATE/TIME: 10/29/2017 15:24 [facility] COMPARISON: No previous studies available for comparison. INDICATIONS : Chest pain. Angina. DOSE: 26.2 mCi Tc99m Myoview at stress. 8.1 mCi Tc99m Myoview at rest. 0.4 mg Lexiscan STRESS SYMPTOMS: Shortness of breath, stomach hurts. EJECTION FRACTION: 45% MEDICAL HISTORY : Hypertension. SURGICAL HISTORY : CABG Chest surgery. ENCOUNTER: Initial ACUITY: 1 day PAIN SCALE: 3/10 LOCATION: chest TECHNIQUE: The patient underwent pharmacologic stress with infusion of prescribed dose. Continuous ECG tracing was monitored during stress. Gated SPECT imaging was performed after stress and conventional SPECT i maging was performed at rest. The examination was performed on a SPECT/CT scanner, both attenuation and non-corrected datasets were reviewed. FINDINGS: DISTRIBUTION: The maximum perfused segment at stress is in the anterior wall. PERFUSION STUDY: The pattern of perfusion at stress is within normal limits. GATED STUDY: Global hypokinesis. Hypokinesis is most prominent in the septal wall. CONCLUSION: 1. No reversible perfusion defect identified. 2. Global hypokinesis and ejection fraction of 45%. RISK CATEGORY: 2- Intermediate Risk. Cristi Bernal MD on October 29, 2017 at 16:58 Board Certified Radiologist. This report was verified electronically.
[2017-10-29 18:00] VITALS: BP 123/75; PULSE 109; RESP 17; TEMP 98; O2SAT 98
[2017-10-29] MEDS: MIRTAZAPINE 15 MG TAB PO SCH (20:13)
[2017-10-30] MEDS: ACETAMINOPHEN/HYDROcodone 325 MG/5 MG TAB PO PRN ×5 (03:27→21:05)
[2017-10-30 05:58] VITALS: BP 103/65; PULSE 84; RESP 18; TEMP 98.8; O2SAT 98
[2017-10-30] MEDS: METOPROLOL TARTRATE 25 MG TAB PO SCH ×2 (07:44→21:05)
[2017-10-30] MEDS: ASPIRIN EC 81 MG TABEC PO SCH (07:44)
[2017-10-30] MEDS: MEMANTINE HCL 5 MG TAB PO SCH (07:45)
[2017-10-30] MEDS: REMOVE OLD NICOTINE PATCH T-DERMAL SCH (09:00)
--- NOTE | 2017-10-30 09:00 | HHI.PYPN ---
Subjective Remarks Patient seen in his room today with nurse Horton, chart review, patient discussed with nurse, patient compliant medications. Patient states is having a good day today denies suicidality homicidality voices or visions. Is no subtle drug-seeking today either. For now continue treatment Review of Systems Except as stated in HPI: all other systems reviewed are Neg Mental Status Examination Appearance: Appropriate Consciousness: Alert Orientation: Person, Place, Date/Time Motor Activity: Other (No abnormal motor movements noted) Speech: Unremarkable Language: Adequate Fund of Knowledge: Adequate Attention and Concentration: Adequate Memory: Impaired (MOCA yesterday ) Mood: Other (mildly dysphoric) Affect: Other (tearful at times) Thought Process & Associations: Intact Thought Content: Appropriate Hallucination Type: None Delusion Type: None Suicidal Ideation: No Suicidal Plan: No Suicidal Intention: No Homicidal Ideation: No Homicidal Plan: No Homicidal Intention: No Results Vitals/IOs Vital Signs Date Time Temp Pulse Resp B/P (MAP) Pulse Ox O2 Delivery O2 Flow Rate FiO2 10/30/17 05:58 98.8 84 18 103/65 (78) 98 Intake and Output 10/30/17 10/30/17 10/31/17 08:00 16:00 00:00 Intake Total 480 ml Balance 480 ml Assessment & Plan Problem List: (1) Adjustment disorder, unspecified ICD Codes: F43.20 - Adjustment disorder, unspecified (2) Neurocognitive disorder ICD Codes: R41.9 - Unspecified symptoms and signs involving cognitive functions and awareness Assessment & Plan Estimated LOS: days patient calm cooperative no behavior problems today compliant medications. No subtle drug-seeking today either Justification for Cont. Inpt. At this time patient decompensated placed in the lower level of care Discharge Planning To be determined Request HC Surrog/Guard Advoc?: No Problem Qualifiers (1) Adjustment disorder, unspecified: Qualified Codes: F43.21 - Adjustment disorder with depressed mood Kaden Pierce MD Oct 30, 2017 09:00
--- NOTE | 2017-10-30 13:56 | PD.CARD.PN ---
Subjective Subjective Remarks No events overnight Still has pain in multiple areas, asking for pain pill as that helps Has taken nitro but it does not help Objective Medications Current Medications Medications (Trade) Dose Ordered Sig/Uziel Route Start Time Stop Time Status Last Admin (Tylenol) 650 mg Q4H PRN PO 10/24/17 10:30 (Milk Of Magnesia Liq) 30 ml DAILY PRN PO 10/24/17 10:30 (Mag-Al Plus Susp Liq) 30 ml Q6H PRN PO 10/24/17 10:30 10/26/17 04:59 (Habitrol 21 Mg Patch.24 Hr) 1 patch DAILY PRN T-DERMAL 10/24/17 10:30 (Cogentin) 0.5 mg Q12H PRN PO 10/24/17 10:30 (Cogentin Inj) 0.5 mg Q12H PRN IM 10/24/17 10:30 (Melatonin) 5 mg HS PRN PO 10/24/17 10:30 10/26/17 21:50 (Pill Splitter) 1 ea UNSCH PRN OTHER 10/24/17 10:45 Miscellaneous Information 1 DAILY T-DERMAL 10/25/17 09:00 10/26/17 09:00 (Drisdol) 50,000 units Q7D PO 10/24/17 18:00 (Lopressor) 25 mg Q12HR PO 10/24/17 21:00 10/30/17 07:44 (Ecotrin Ec) 81 mg DAILY PO 10/24/17 18:30 10/30/17 07:44 (Nitrostat Sl) 0.4 mg Q5M PRN SL 10/25/17 09:15 ([place] 5-325 Mg) 1 tab Q4H PRN PO 10/25/17 13:00 10/30/17 12:05 (Namenda) 5 mg DAILY PO 10/26/17 09:00 11/01/17 09:01 10/30/17 07:45 (Namenda) 5 mg BID PO 11/02/17 09:00 11/08/17 21:01 (Namenda) 10 mg BID PO 11/09/17 09:00 (Remeron) 15 mg HS PO 10/28/17 21:00 10/29/17 20:13 Vital Signs / I&O Vital Signs Date Time Temp Pulse Resp B/P (MAP) Pulse Ox O2 Delivery O2 Flow Rate FiO2 10/30/17 05:58 98.8 84 18 103/65 (78) 98 10/29/17 18:00 98.0 109 17 123/75 (91) 98 I/O 10/29/17 10/29/17 10/29/17 10/30/17 10/30/17 10/30/17 07:00 15:00 23:00 07:00 15:00 23:00 Intake Total 240 ml 480 ml 1300 ml 480 ml Balance 240 ml 480 ml 1300 ml 480 ml Intake Oral 240 ml 480 ml 1300 ml 480 ml # Voids 2 Physical Exam GENERAL: NAD SKIN: Warm and dry. HEAD: Atraumatic. Normocephalic. EYES: Pupils equal and round. No scleral icterus. No injection or drainage. ENT: No nasal bleeding or discharge. Mucous membranes pink and moist. NECK: Trachea midline. No JVD. CARDIOVASCULAR: Regular rate and rhythm. RESPIRATORY: No accessory muscle use. Clear to auscultation. Breath sounds equal bilaterally. GASTROINTESTINAL: Abdomen soft, non-tender, nondistended. Hepatic and splenic margins not palpable. MUSCULOSKELETAL: Extremities without clubbing, cyanosis, or edema. No obvious deformities. NEUROLOGICAL: Awake and alert. No obvious cranial nerve deficits. Motor grossly within normal limits. Five out of 5 muscle strength in the arms and legs. Normal speech. PSYCHIATRIC: Appropriate mood and affect; insight and judgment normal. Assessment and Plan Problem List: (1) Elevated troponin ICD Codes: R74.8 - Abnormal levels of other serum enzymes (2) Chest pain, atypical ICD Codes: R07.89 - Other chest pain (3) CAD (coronary artery disease) ICD Codes: I25.10 - Atherosclerotic heart disease of [place] coronary artery without angina pectoris (4) Hx of CABG ICD Codes: Z95.1 - Presence of aortocoronary bypass graft Assessment and Plan 1) Atypical chest pain Minimal troponin elevation Stress test showing no ischemia con't medical management 2) Will check 2D echo, otherwise no further work up 3) Tobacco abuse Cessation 4) Con't ASA Adryan Navarro DO Oct 30, 2017 13:56
[2017-10-30 15:12] VITALS: BP 117/69; PULSE 103; RESP 16; TEMP 98; O2SAT 97
[2017-10-30] MEDS: MIRTAZAPINE 15 MG TAB PO SCH (21:05)
[2017-10-31] MEDS: ACETAMINOPHEN/HYDROcodone 325 MG/5 MG TAB PO PRN ×5 (01:48→18:12)
[2017-10-31 05:12] VITALS: BP 103/58; PULSE 76; RESP 16; TEMP 98; O2SAT 97
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
[2017-10-31] MEDS: REMOVE OLD NICOTINE PATCH T-DERMAL SCH (09:00)
[2017-10-31] MEDS: METOPROLOL TARTRATE 25 MG TAB PO SCH ×2 (10:05→21:14)
[2017-10-31] MEDS: MEMANTINE HCL 5 MG TAB PO SCH (10:06)
[2017-10-31] MEDS: ASPIRIN EC 81 MG TABEC PO SCH (10:06)
--- NOTE | 2017-10-31 15:12 | HHI.PYPN ---
Subjective Remarks Patient seen and examined. Chart reviewed. Patient seen by neuropsychology over the weekend with a diagnosis of mild major neurocognitive disorder, likely of the Alzheimer type. Patient also seen by cards, who are recommending 2D echo to complete cardiac workup. On my exam today, patient is in better spirits versus before the weekend. He denies any SI/HI. He is sleeping better with Remeron. He denies side effects from medications. He has no physical complaints. He continues to decline placement in [facility] or other facility but is willing to accept a home health referral, and I will initiate this today. I have counseled the patient not to drive, and I note that Dr. Carpio recommends a driving evaluation. I will complete a medical reporting form with [facility]. Review of Systems Except as stated in HPI: all other systems reviewed are Neg Mental Status Examination Appearance: Appropriate Consciousness: Alert Orientation: Person, Place, Date/Time Motor Activity: Other (no motor abnormalities noted) Speech: Unremarkable Language: Adequate Fund of Knowledge: Adequate Attention and Concentration: Adequate Memory: Impaired Mood: Appropriate Affect: Appropriate Thought Process & Associations: Intact, Linear Thought Content: Appropriate Hallucination Type: None Delusion Type: None Suicidal Ideation: No Suicidal Plan: No Suicidal Intention: No Homicidal Ideation: No Homicidal Plan: No Homicidal Intention: No Mental Status Exam Remarks Insight and judgment are fair at best Results Labs Labs reviewed. Vitamin B6 pending. 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 Home health referral completed. [facility] medical reporting form completed; original to [facility], copy to chart. Casing Splitter input noted and appreciated. RN to obtain medical clearance. Continue to monitor on inpatient unit. Continue other medications and care as ordered. Justification for Cont. Inpt. Final discharge planning Discharge Planning Anticipate discharge tomorrow, Tuesday Request HC Surrog/Guard Advoc?: No Problem Qualifiers (1) Adjustment disorder, unspecified: Qualified Codes: F43.21 - Adjustment disorder with depressed mood Anjel Negrete MD Oct 31, 2017 15:12
--- NOTE | 2017-10-31 15:13 | HHI.FF ---
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 My clinical findings support the need for the requested home health care services because: Need for psychosocial assistance Impaired cognition/judgement I certify that my clinical findings support that this patient is homebound because: Impaired cognitive ability/safety Need for psychosocial assistance Anjel Negrete MD Oct 31, 2017 15:13
[2017-10-31 17:17] VITALS: BP 119/60; PULSE 93; RESP 16; TEMP 98.3; O2SAT 96
--- NOTE | 2017-10-31 17:35 | ECHRPT ---
Indication: CHEST PAIN CONCLUSIONS Normal left ventricular size. Moderate concentric left ventricular hypertrophy. There is abnormal (paradoxical) septal motion consistent with postoperative state. The left ventricular systolic function is moderately reduced with an estimated ejection fraction in the range of 40-45%. The left atrial size is mildly dilated. The right atrial size is mildly dilated. No atrial level shunt is demonstrated by color flow Doppler interrogation. The aortic root and proximal ascending aorta are not well visualized. [id number] mitral valve regurgitation. BP: 117 / 69 HR: 103 Rhythm: Sinus MEASUREMENTS (Male / Female) Normal Values Technical Quality:Fair 2D ECHO LV Diastolic Diameter PLAX 4.6 cm 4.2 - 5.9 / 3.9 - 5.3 cm LV Systolic Diameter PLAX 3.9 cm IVS Diastolic Thickness 1.5 cm 0.6 - 1.0 / 0.6 - 0.9 cm LVPW Diastolic Thickness 1.5 cm 0.6 - 1.0 / 0.6 - 0.9 cm LV Relative Wall Thickness 0.6 RV Internal Dim ED PLAX 2.4 cm LVOT Diameter 2.3 cm Aortic Root Diameter 3.7 cm LA Systolic Diameter LX 4.0 cm 3.0 - 4.0 / 2.7 - 3.8 cm M-MODE AV Cusp Separation MM 2.2 cm DOPPLER AV Peak Velocity 127.0 cm/s AV Peak Gradient 6.5 mmHg AV Mean Gradient 3.0 mmHg AV Velocity Time Integral 15.2 cm LVOT Peak Velocity 74.4 cm/s LVOT Peak Gradient 2.2 mmHg LVOT Velocity Time Integral 11.9 cm AV Area Cont Eq vti 3.3 cm AV Area Cont Eq pk 2.4 cm Mitral E Point Velocity 41.0 cm/s Mitral A Point Velocity 68.6 cm/s Mitral E to A Ratio 0.6 LV E' Lateral Velocity 8.4 cm/s Mitral E to LV E' Lateral Ratio 4.9 LV E' Septal Velocity 4.0 cm/s Mitral E to LV E' Septal Ratio 10.3 PV Peak Velocity 45.9 cm/s PV Peak Gradient 0.8 mmHg FINDINGS LEFT VENTRICLE Normal left ventricular size. Moderate concentric left ventricular hypertrophy. There is abnormal (paradoxical) septal motion consistent with postoperative state. The left ventricular systolic function is moderately reduced with an estimated ejection fraction in the range of 40-45%. RIGHT VENTRICLE Normal right ventricular size and systolic function. LEFT ATRIUM The left atrial size is mildly dilated. RIGHT ATRIUM The right atrial size is mildly dilated. ATRIAL SEPTUM No atrial level shunt is demonstrated by color flow Doppler interrogation. AORTA The aortic root and proximal ascending aorta are not well visualized. MITRAL VALVE [id number] mitral valve regurgitation. AORTIC VALVE Trileaflet aortic valve. No aortic valve stenosis or regurgitation. TRICUSPID VALVE Structurally normal tricuspid valve. No tricuspid valve stenosis or regurgitation. PULMONARY VALVE No pulmonary valve regurgitation or stenosis. VESSELS The inferior vena cava is normal in size. PERICARDIUM No pericardial effusion. Moy Sims MD, FACC (Electronically Signed) Final Date:31 October 2017 17:33
--- NOTE | 2017-10-31 17:35 | PD.CARD.PN ---
Subjective Subjective Remarks No events overnight Still has pain in multiple areas, asking for pain pill as that helps Has taken nitro but it does not help Objective Medications Current Medications Medications (Trade) Dose Ordered Sig/Uziel Route Start Time Stop Time Status Last Admin (Tylenol) 650 mg Q4H PRN PO 10/24/17 10:30 (Milk Of Magnesia Liq) 30 ml DAILY PRN PO 10/24/17 10:30 (Mag-Al Plus Susp Liq) 30 ml Q6H PRN PO 10/24/17 10:30 10/26/17 04:59 (Habitrol 21 Mg Patch.24 Hr) 1 patch DAILY PRN T-DERMAL 10/24/17 10:30 (Cogentin) 0.5 mg Q12H PRN PO 10/24/17 10:30 (Cogentin Inj) 0.5 mg Q12H PRN IM 10/24/17 10:30 (Melatonin) 5 mg HS PRN PO 10/24/17 10:30 10/26/17 21:50 (Pill Splitter) 1 ea UNSCH PRN OTHER 10/24/17 10:45 Miscellaneous Information 1 DAILY T-DERMAL 10/25/17 09:00 10/26/17 09:00 (Drisdol) 50,000 units Q7D PO 10/24/17 18:00 (Lopressor) 25 mg Q12HR PO 10/24/17 21:00 10/31/17 10:05 (Ecotrin Ec) 81 mg DAILY PO 10/24/17 18:30 10/31/17 10:06 (Nitrostat Sl) 0.4 mg Q5M PRN SL 10/25/17 09:15 (Innis 5-325 Mg) 1 tab Q4H PRN PO 10/25/17 13:00 10/31/17 14:15 (Namenda) 5 mg DAILY PO 10/26/17 09:00 11/01/17 09:01 10/31/17 10:06 (Namenda) 5 mg BID PO 11/02/17 09:00 11/08/17 21:01 (Namenda) 10 mg BID PO 11/09/17 09:00 (Remeron) 15 mg HS PO 10/28/17 21:00 10/30/17 21:05 Vital Signs / I&O Vital Signs Date Time Temp Pulse Resp B/P (MAP) Pulse Ox O2 Delivery O2 Flow Rate FiO2 10/31/17 17:17 98.3 93 16 119/60 (79) 96 10/31/17 05:12 98.0 76 16 103/58 (73) 97 10/31/17 02:48 20 I/O 10/30/17 10/30/17 10/30/17 10/31/17 10/31/17 10/31/17 07:00 15:00 23:00 07:00 15:00 23:00 Intake Total 1680 ml 960 ml 840 ml 840 ml Balance 1680 ml 960 ml 840 ml 840 ml Intake Oral 1680 ml 960 ml 840 ml 840 ml # Voids 3 2 Physical Exam GENERAL: NAD SKIN: Warm and dry. HEAD: Atraumatic. Normocephalic. EYES: Pupils equal and round. No scleral icterus. No injection or drainage. ENT: No nasal bleeding or discharge. Mucous membranes pink and moist. NECK: Trachea midline. No JVD. CARDIOVASCULAR: Regular rate and rhythm. RESPIRATORY: No accessory muscle use. Clear to auscultation. Breath sounds equal bilaterally. GASTROINTESTINAL: Abdomen soft, non-tender, nondistended. Hepatic and splenic margins not palpable. MUSCULOSKELETAL: Extremities without clubbing, cyanosis, or edema. No obvious deformities. NEUROLOGICAL: Awake and alert. No obvious cranial nerve deficits. Motor grossly within normal limits. Five out of 5 muscle strength in the arms and legs. Normal speech. PSYCHIATRIC: Appropriate mood and affect; insight and judgment normal. Assessment and Plan Problem List: (1) Elevated troponin ICD Codes: R74.8 - Abnormal levels of other serum enzymes (2) Chest pain, atypical ICD Codes: R07.89 - Other chest pain (3) CAD (coronary artery disease) ICD Codes: I25.10 - Atherosclerotic heart disease of [place] coronary artery without angina pectoris (4) Hx of CABG ICD Codes: Z95.1 - Presence of aortocoronary bypass graft Assessment and Plan 1) Atypical chest pain Minimal troponin elevation Stress test showing no ischemia con't medical management 2) Will check 2D echo, otherwise no further work up If no concerns on the echo, he may be discharged from a cardiovascular standpoint 3) Tobacco abuse Cessation 4) Con't ASA Adryan Navarro DO Oct 31, 2017 17:35
[2017-10-31] MEDS: ERGOCALCIFEROL (VIT D2) 50,000 UNIT CAP PO SCH (18:00)
[2017-10-31] MEDS: MIRTAZAPINE 15 MG TAB PO SCH (21:14)
[2017-11-01] MEDS: ACETAMINOPHEN/HYDROcodone 325 MG/5 MG TAB PO PRN ×4 (02:48→16:12)
[2017-11-01 05:43] VITALS: BP 119/68; PULSE 76; RESP 16; TEMP 97.4; O2SAT 97
[2017-11-01] MEDS: ASPIRIN EC 81 MG TABEC PO SCH (08:53)
[2017-11-01] MEDS: MEMANTINE HCL 5 MG TAB PO SCH (08:53)
[2017-11-01] MEDS: METOPROLOL TARTRATE 25 MG TAB PO SCH (08:53)
[2017-11-01] MEDS: REMOVE OLD NICOTINE PATCH T-DERMAL SCH (08:55)
[2017-11-01] MEDS ORDERED: ECASA81 PO (10:26)
[2017-11-01] MEDS ORDERED: NAME5TAB2 PO (10:26)
[2017-11-01] MEDS ORDERED: VITA500012 PO (10:26)
[2017-11-01] MEDS ORDERED: METO25TA3 PO (10:26)
[2017-11-01] MEDS ORDERED: MIRTA15 PO (10:26)
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
--- NOTE | 2017-11-02 00:13 | PD.CARD.PN ---
Subjective Subjective Remarks Patient was seen earlier on 11/01, late entry No events overnight Objective Vital Signs / I&O Vital Signs Date Time Temp Pulse Resp B/P (MAP) Pulse Ox O2 Delivery O2 Flow Rate FiO2 11/01/17 05:43 97.4 76 16 119/68 (85) 97 11/01/17 03:48 18 I/O 11/01/17 11/01/17 11/01/17 11/02/17 11/02/17 11/02/17 07:00 15:00 23:00 07:00 15:00 23:00 Intake Total 60 ml 600 ml Balance 60 ml 600 ml Intake Oral 60 ml 600 ml # Voids 2 Physical Exam GENERAL: NAD SKIN: Warm and dry. HEAD: Atraumatic. Normocephalic. EYES: Pupils equal and round. No scleral icterus. No injection or drainage. ENT: No nasal bleeding or discharge. Mucous membranes pink and moist. NECK: Trachea midline. No JVD. CARDIOVASCULAR: Regular rate and rhythm. RESPIRATORY: No accessory muscle use. Clear to auscultation. Breath sounds equal bilaterally. GASTROINTESTINAL: Abdomen soft, non-tender, nondistended. Hepatic and splenic margins not palpable. MUSCULOSKELETAL: Extremities without clubbing, cyanosis, or edema. No obvious deformities. NEUROLOGICAL: Awake and alert. No obvious cranial nerve deficits. Motor grossly within normal limits. Five out of 5 muscle strength in the arms and legs. Normal speech. PSYCHIATRIC: Appropriate mood and affect; insight and judgment normal. Assessment and Plan Problem List: (1) Elevated troponin ICD Codes: R74.8 - Abnormal levels of other serum enzymes (2) Chest pain, atypical ICD Codes: R07.89 - Other chest pain (3) CAD (coronary artery disease) ICD Codes: I25.10 - Atherosclerotic heart disease of [place] coronary artery without angina pectoris (4) Hx of CABG ICD Codes: Z95.1 - Presence of aortocoronary bypass graft Assessment and Plan 1) Atypical chest pain Minimal troponin elevation Stress test showing no ischemia con't medical management 2) EF 45% 3) Tobacco abuse Cessation 4) Con't ASA 5) Cardiovascularly stable for discharge Adryan Navarro DO Nov 02, 2017 00:13
[2017-11-02] MEDS ORDERED: MEMANTINE HCL 5 MG TAB PO SCH (09:00)
[2017-11-09] MEDS ORDERED: MEMANTINE HCL 5 MG TAB PO SCH (09:00)
== END 2017-11-01 16:20 | disposition home health service (06) | DRG 881 ==
LOC: NEPE 23:07 → NEDA 10-24 10:30 → H4EA 10-24 13:05
PROVIDERS: ADMIT Psychiatry & Neurology Psychiatry; ATTEND Psychiatry & Neurology Psychiatry
DX: F43.21 Adjustment disorder with depressed mood (principal); G93.41 Metabolic encephalopathy; G30.9 Alzheimer's disease, unspecified; F02.80 Dementia in other diseases classified elsewhere, unspecified severity, without behavioral disturbance, psychotic disturbance, mood disturbance, and anxiety; I25.10 Atherosclerotic heart disease of native coronary artery without angina pectoris; F17.210 Nicotine dependence, cigarettes, uncomplicated; R00.0 Tachycardia, unspecified; G89.29 Other chronic pain; M75.101 Unspecified rotator cuff tear or rupture of right shoulder, not specified as traumatic; I49.3 Ventricular premature depolarization; Z95.1 Presence of aortocoronary bypass graft
CPT/HCPCS: 36600; 70450; 70551; 76937; 78452; 80053; 80061; 80307; 81001; 82140; 82306; 82550; 82552; 82607; 82805; 83036; 83921; 84165; 84207; 84425; 84443; 84484; 85025; 85652; 86038; 86140; 86592; 86703; 93005; 93017; 93306; 93880; 95819; 99285; A9502; J2785